=== PATIENT | male | born 1955 | race Caucasian/White ===

== ENCOUNTER 2024-01-12 09:52 | Day surgery (SDC) | payer MEDICARE, BC, SELFPAY ==
[2023-08-25 10:44] VITALS: BMI 30.6
[2023-08-25 11:26] LABS: % Basophils 0.4 % (0-2); % Eosinophils 2.9 % (0-6); % Immature Granulocytes 0.4 % (0-0.5); % Lymphocytes 19.1 % (20.5-51.1); % Monocytes 8.9 % (1.7-9.3); % Neutrophils 68.3 % (42.2-75.2); Absolute Eosinophils 0.2 10^3/uL (0-0.7); Absolute Lymphocytes 1.4 10^3/uL (1.2-3.4); Absolute Monocytes 0.7 10^3/uL (0.1-0.6); Hematocrit 46.6 % (39.0-52.0); Hemoglobin 15.7 g/dL (13.0-18.0); Mean Corp Hgb Conc. 33.7 g/dL (33.0-37.0); Mean Corpuscular Hgb 30.4 pg (27.0-31.0); Mean Corpuscular Volume 90.3 fL (80.0-94.0); Mean Platelet Volume 10.9 fL (7.4-10.4); Nucleated Red Blood Cells % 0 % (-); Platelet Count 218 10^3/uL (130-400); Red Blood Cell Count 5.16 10^6/uL (4.70-6.10); Red Cell Dist. Width 13.5 % (11.5-14.5); White Blood Cell Count 7.3 10^3/uL (4.8-10.8)
[2023-08-25 12:13] LABS: ALT (SGPT) 27 U/L (0-50); AST (SGOT) 28 U/L (17-59); Albumin 3.9 g/dl (3.5-5.0); Alkaline Phosphatase 65 U/L (38-126); Blood Urea Nitrogen 54 mg/dl (9-20); Calcium 9.5 mg/dl (8.4-10.2); Carbon Dioxide 18 mmol/L (22-30); Chloride 105 mmol/L (98-107); Estimated Creatinine Clearance 48 ml/min; Glucose 100 mg/dl (70-99); Potassium 5.1 mmol/L (3.5-5.1); Sodium 129 mmol/L (135-145); Total Bilirubin 0.6 mg/dl (0.2-1.3); eGFR 41.26
[2024-01-12] VITALS (12 sets, daily range): BP systolic 128–203; BP diastolic 69–106
--- NOTE | 2024-01-12 10:30 | W.ICD.CONTRA ---
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
-
History of NC?: Yes
LV Function
Left ventricular function study result?: Ejection Fraction </= 35%
ACEI/ARB/ARNI
Patient already on ACEI/ARB/ARNI: Yes
Beta-Donna
Patient already on Beta Donna: Yes
[2024-01-12 10:57] LABS: Glucose - Point of Care 116 mg/dl (70-99)
[2024-01-12] MEDS: TYLENOL 650 MG PO ×2 (14:50→19:29)
--- NOTE | 2024-01-12 15:25 | CM ---
Chart reviewed. Patient is independent of ADLS, lives alone in a 1 S[address], 1 GRACIELA, 0 DME. Patient currently with no discharge needs. Plan is for the patient to return home. CM to follow
[2024-01-12] MEDS: ULTRAM 50 MG PO ×2 (15:52→21:33)
--- NOTE | 2024-01-12 16:21 | PTCARENOTE ---
Pt received at 1445 post procedure. Pt with left arm immobilizer intact and left chest incision pressure dressing intact. Pt c/o of left arm and incision pain, medicated with tylenol as ordered with no relief. Pt medicated with Ultram as ordered. Pt
sent for the CXR. No other c/o offered.
--- NOTE | 2024-01-12 17:32 | ITS.CL.ICD ---
Rn Oncology Clinical - ICD
Implantable Cardioverter Defibrillator
Procedure Report:
Primary Supervisor Production: Andrew Kohler MD
Primary Care Physician: Rodger Agosto MD
Procedure Date: 01/12/2024
Name of procedure:
1. Placement of a dual-chamber ICD
2. Subclavian venography
History:
1. 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
fraction LVEF less than 35% despite goal-directed medical therapy.
2. Please refer to H&P for complete history.
Indication:
Primary prevention, sinus rhythm IVCD QRS duration 118-128 ms, LVEF less than 35% despite goal-directed medical therapy and revascularization following appropriate waiting period greater than 3 months
Methods:
After informed consent was obtained, the patient was brought to the EP laboratory in a postabsorptive, nonsedated state. Peripheral IV access was established. Prophylactic antibiotics were administered prior to incision. Continuous ECG, blood
pressure, and pulse oximetry were initiated. Cardioversion patch electrodes were placed on the patient's chest and back. A grounding patch was applied to the skin. Sedation was administered by anesthesia services.
In order to define the extrathoracic portion of the subclavian vein and exclude significant venous obstruction or anomalous anatomy, subclavian venography was performed prior to the procedure. Using the patient's left peripheral IV, contrast was
injected and images were recorded. The left subclavian vein and SVC were found to be widely patent.
The left chest was prepared and draped in a sterile fashion. A time-out was performed. Local anesthesia was injected in the subcutaneous tissue in the infraclavicular area. An incision was made medial to the deltopectoral groove. The subcutaneous
tissue was dissected the level of the prepectoral fascia. A subcutaneous pocket was created. Under fluoroscopic guidance and with the assistance of the images from the venogram, a venipuncture was made using micropuncture and modified Seldinger
technique. This was performed in the extrathoracic portion of the subclavian vein. Guidewire was passed and a peel-away sheath was placed, and used to advance lead into the circulation.
Using fluoroscopic guidance, the lead were positioned. The RV lead was advanced to the RV/outflow tract. Ventricular ectopy was recorded. Images were taken in MCCURDY and [place] views to ensure appropriate lead placement. The lead tip was subsequently
positioned on the apical septum. Adequate sensing and pacing parameters were found, and no diaphragmatic stimulation was seen with high-output pacing. The sheath was split and the lead were secured to the fascia with Ethibond ties.
The pocket was flushed with antibiotic solution and hemostasis was assured. The generator was connected to the leads and placed inside the pocket. Antibiotic envelope was used. The wound was closed with 3 running layers of absorbable suture, and
steri-strips were applied. Dressing applied over steri-strips in standard fashion.
Following the procedure, the patient was taken to the recovery area in stable condition. A chest x-ray to be obtained post procedure.
Lead parameter and device programming:
- RV Lead (Medtronic, Model 6935, # [id number]): Sensing 11.4 mV, Pacing threshold 0.5 V at 0.4 ms, Imp 456 ohm
- Device: Medtronic, [id number] ICD (# [id number]), programmed VVI, mode switch off, lower rate 40 ppm
- Zones: Monitor 150�167; VT 167-188 iATP with shocks; VT >188 atp with charge and shock
Conclusions:
1. Successful placement of a single-chamber ICD
2. Subclavian venography
Recommendations:
- Admit
- Chest x-ray today, PRABHU tomorrow
- IV antibiotics while the patient is admitted
- OK to resume home medications as indicated
- Pressure dressing to be removed in AM, aquacell to remain until wound check
- Follow-up for incision check in the office in 7-10 days post-discharge
Merrill Recinos DO
Clinical Cardiac Tag Press Operator
cc: Andrew Kohler MD, Rodger Agosto MD
[2024-01-12] MEDS: ANCEF 5 IV (17:34)
[2024-01-12] MEDS: FLUSH (NSS) 1 FLUSH IV (17:35)
[2024-01-12] MEDS: NOVOLOG FLEXPEN-MODERATE RESISTANCE 1 UNITS SC (18:04)
[2024-01-12 18:07] LABS: Glucose - Point of Care 163 mg/dl (70-99)
[2024-01-12] MEDS: TOPROL XL 25 MG PO (19:24)
[2024-01-12] MEDS: ENTRESTO 24 MG/26 MG 1 TAB PO (19:24)
[2024-01-12] MEDS: MELATONIN 5 MG PO (22:23)
[2024-01-12 22:29] LABS: Glucose - Point of Care 137 mg/dl (70-99)
--- NOTE | 2024-01-12 23:59 | PTCARENOTE ---
Pt oob in recliner chair most of evening shift. 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 Left ant chest ICD with pressure DDI. Sinus on
telemetry.
[2024-01-13] MEDS: ANCEF 5 IV (03:00)
[2024-01-13 03:01] VITALS: BP 129/95
[2024-01-13] MEDS: ULTRAM 50 MG PO ×2 (03:14→08:46)
[2024-01-13 03:16] VITALS: BMI 31.2
[2024-01-13 04:14] LABS: Hematocrit 42.7 % (39.0-52.0); Hemoglobin 14.5 g/dL (13.0-18.0); Mean Corpuscular Volume 91.2 fL (80.0-94.0); Mean Platelet Volume 10.9 fL (7.4-10.4); Platelet Count 191 10^3/uL (130-400); Red Blood Cell Count 4.68 10^6/uL (4.70-6.10); Red Cell Dist. Width 13.8 % (11.5-14.5); White Blood Cell Count 8.4 10^3/uL (4.8-10.8)
[2024-01-13 04:38] LABS: Blood Urea Nitrogen 56 mg/dl (9-20); Calcium 9.1 mg/dl (8.4-10.2); Carbon Dioxide 14 mmol/L (22-30); Chloride 105 mmol/L (98-107); Estimated Creatinine Clearance 45 ml/min; Glucose 133 mg/dl (70-99); Magnesium 2.3 mg/dl (1.6-2.3); Potassium 5.6 mmol/L (3.5-5.1); Sodium 135 mmol/L (135-145); eGFR 38.42
[2024-01-13 07:40] VITALS: BP 129/65
[2024-01-13 08:37] LABS: Glucose - Point of Care 129 mg/dl (70-99)
[2024-01-13] MEDS: NOVOLOG FLEXPEN-MODERATE RESISTANCE SC (08:37)
[2024-01-13] MEDS: LOW STRENGTH ASPIRIN 81 MG PO (08:38)
[2024-01-13] MEDS: ENTRESTO 24 MG/26 MG 1 TAB PO (08:38)
[2024-01-13] MEDS: TOPROL XL 25 MG PO (08:39)
[2024-01-13 09:19] LABS: Glycohemoglobin (HgbA1c) 6.1 % (4.0-5.6)
--- NOTE | 2024-01-13 09:26 | W.PN.CARDCBS ---
Addendum entered and electronically signed by KARUNA Rivas 01/13/24 14:32:
dictated discharge summary, #[id number]
Addendum entered and electronically signed by Raphael Patten MD 01/13/24 13:08:
Patient seen, interviewed and examined by me.
Well-appearing, no acute distress
Dressing at left upper chest is clean and dry.
Regular rate and rhythm with normal S1 and S2, no S3 no S4. There is a grade 1/6 apical holosystolic murmur and no rubs. PMI is normally placed.
Lungs are clear to auscultation bilaterally without wheezes rales or rhonchi.
Abdomen soft nontender nondistended with normoactive bowel sounds
Extremities show trace pretibial edema bilaterally no clubbing or cyanosis.
Neurologic exam is grossly nonfocal.
Agree with advanced practice professionals assessment and plan as noted below.
We reviewed results of yesterday's procedure and I have answered all of his questions.
Chest x-ray without pneumothorax, there is normal position of the leads.
Additionally we reviewed discharge instructions in detail. All of his questions have been answered.
He is stable for discharge to home today.
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 Andrew Kohler.
Original Note:
Today's Communication / Plan
-
s/p SC ICD, POD 1
ok for d/c with incision check in [address] Kohler's office
reviewed activity restrictions post new ICD
Impression / Plan
-
PCP: Rodger Agosto MD
Primary loading and unloading supervisor: Andrew Kohler MD, [facility]
Diagnostic cardiovascular studies:
Echocardiogram 06/21/2023: Borderline dilated LV, EF 25 to 30%, diffuse hypokinesis with lateral wall least affected, LV apical thrombus, grade 3 diastolic dysfunction, moderate to severe RV dysfunction, mild- mod
EKG 01/13/2024: Normal sinus rhythm with first-degree AV block, left axis deviation, intraventricular conduction delay, cannot rule out inferior, anterior infarct
Impression:
Implantation of dual-chamber ICD, postop day 1
Ischemic cardiomyopathy
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
Dyslipidemia
Hypertension
Diabetes mellitus type 2
Intraventricular conduction delay, QRS duration 118 to 128 ms
Heart failure with reduced ejection fraction despite goal-directed medical therapy, [place] Heart [employer] class II symptoms
Plan:
-reviewed activity restrictions s/p new ICD
-resume usual meds
-ok for discharge with incision check f/u at primary loading and unloading supervisor's in one week
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
Subjective
Date of Service: January 13, 2024
-no incisional drainage, afebrile
-mild soreness at site
Objective
Labs:
01/13/24 03:07
01/13/24 03:07
Labs
Hgb 14.5 g/dL (13.0-18.0) 01/13/24 03:07
Hct 42.7 % (39.0-52.0) 01/13/24 03:07
Plt Count 191 10^3/uL (130-400) 01/13/24 03:07
Sodium 135 mmol/L (135-145) 01/13/24 03:07
Potassium 5.6 mmol/L (3.5-5.1) H 01/13/24 03:07
BUN 56 mg/dl (9-20) H 01/13/24 03:07
Creatinine 1.9 mg/dL (0.7-1.3) H 01/13/24 03:07
Glucose 133 mg/dl (70-99) H 01/13/24 03:07
Vital Signs and I&O:
Vital Signs
Temp Pulse Resp BP Pulse Ox
97.1 F 83 18 129/65 99
01/13/24 07:41 01/13/24 08:30 01/13/24 07:41 01/13/24 07:40 01/13/24 08:48
Vital Signs
Temp Pulse Resp BP Pulse Ox
97.1 F 83 18 129/65 99
01/13/24 07:41 01/13/24 08:30 01/13/24 07:41 01/13/24 07:40 01/13/24 08:48
Intake & Output
01/11/24 01/12/24 01/13/24 01/14/24
06:59 06:59 06:59 06:59
Intake Total 240 / 240
Balance 240 / 240
Physical Exam
Physical Exam
GEN: No distress, awake, Ox3
HEENT: supple, anicteric, mmm
LUNGS: CTA, no wheezes/rales
CV: Reg, S1/S2, 1/6 syst LSB
ABD: soft, BS+, NT/ND
EXT: No edema
NEURO: Gross non-focal
SKIN: L ACW ICD site covered with aquacell dressing. Removed pressure dressing, no hematoma, no erythema, no drainage
[2024-01-13] MEDS: FARXIGA 10 MG PO (10:16)
--- NOTE | 2024-01-13 10:20 | CM ---
Chart reviewed. Patient is independent of ADLS, lives alone in a 1 [address], 1 [facility], 0 DME. Plan is for the patient to return home.
[2024-01-13 11:46] VITALS: BP 110/68
--- NOTE | 2024-01-13 11:47 | W.DS.TRANS ---
DC Summary - Dulser
-
Discharge Instructions:
Discharge Diagnosis/Procedures Heart failure post ICD
Diet Low Cholesterol,2 Gram Sodium,Diabetic, Carb
Controlled,Restrict fluids to 48 oz
Activity Other activity
Additional Activity see attached sheet
Driving Restrictions No driving for 1 week
Bathing Restrictions OK to Shower
Specialty Instructions Weigh Daily
Instructions:
Stand-Alone Forms: DC Inst - Implanted Device
Changes to Home Medications: No
Discharge Medications:
DC Medications w/original date entered in [employer]
tramadol 50 mg tablet 50 mg PO Q6 PRN pain 07/01/19
acetaminophen 325 mg tablet 650 mg (2 x 325 mg) PO Q4HPRN PRN mild pain,headache,temp >101F 07/08/19
aspirin 81 mg chewable tablet 81 mg PO DAILY 07/08/19
colchicine 0.6 mg tablet 0.6 mg PO DAILY 08/18/23
empagliflozin 10 mg tablet (Jardiance) 10 mg PO DAILY 08/18/23
evolocumab 140 mg/mL subcutaneous pen injector (Repatha SureClick) 140 mg SC Q2W 08/18/23
metformin 500 mg tablet 500 mg PO PRN PRN Blood sugar >120 08/18/23
metoprolol succinate 25 mg tablet,extended release 24 hr 25 mg PO BID 08/18/23
sacubitril 24 mg-valsartan 26 mg tablet (Entresto) 1 tab PO BID 08/18/23
Home Medication Changes
Pending Results: No
--- NOTE | 2024-01-13 13:14 | PTCARENOTE ---
Pt seen by and ALTON Crystal. Telemetry and IV device removed. Discharge instructions reviewed with pt regarding wound care, activity and driving guidelines, medications and possible side effects, CHF guidelines, reporting cares and
concerns and follow up appt's. Very good understanding verbalized. Pt to be discharged when his ride arrives.
== END 2024-01-13 13:39 | disposition home or self-care (01) ==
LOC: CATH 09:52
PROVIDERS: Nurse Practitioner Adult Health; ATTENDING PHYSICIAN Internal Medicine Cardiovascular Disease; FAMILY PHYSICIAN Internal Medicine; OTHER PHYSICIAN Internal Medicine Cardiovascular Disease
DX: I11.0 Hypertensive heart disease with heart failure (principal); I50.22 Chronic systolic (congestive) heart failure; I25.10 Atherosclerotic heart disease of native coronary artery without angina pectoris; E11.9 Type 2 diabetes mellitus without complications; I25.5 Ischemic cardiomyopathy; E78.5 Hyperlipidemia, unspecified; Z95.1 Presence of aortocoronary bypass graft; I25.82 Chronic total occlusion of coronary artery; Z79.82 Long term (current) use of aspirin; Z79.84 Long term (current) use of oral hypoglycemic drugs; Z79.899 Other long term (current) drug therapy
CPT/HCPCS: 33249; 36415; 71045; 80048; 80053; 82962; 83036; 83735; 85025; 85027; 93005; C1722; C1777; C1892; Q9967